=== PATIENT | male | born 1960 | race Caucasian/White ===

== ENCOUNTER 2020-10-26 11:14 | Inpatient (IN) | payer BC ==
[~2020-10-26] VITALS: Ht 185.4 cm; Wt 92.4 kg
[2020-11-19 07:45] LABS: BASO % 0.4 % (0.0-2.0); EOS # 0.1 (0.0-0.7); EOS % 1.5 % (0-4.0); GRAN # 4.4 (1.4-6.5); GRAN % 61.2 % (42.2-75.2); HEMOGLOBIN 15.2 g/dl (13.5-18.0); LYMPH # 2.1 (1.2-3.4); LYMPH % 28.6 % (20.0-51.0); MEAN CELL VOLUME 85 fl (80.0-100.0); MEAN CORPUSCULAR HEMOGLOBIN 27 pg (27.0-31.0); MEAN CORPUSCULAR HGB CONC 32 g/dl (33.0-37.0); MEAN PLATELET VOLUME 8.7 fl (7.4-10.4); MONO # 0.6 (0.1-0.6); PLATELET COUNT 279 K/mm3 (130-400); RED BLOOD COUNT 5.56 M/mm3 (4.20-5.60); REDCELL DISTRIBUTION WIDTH-CV 12.9 % (11.5-14.5)
[2020-11-19 07:54] LABS: ALBUMIN 4.6 gm/dL (3.5-5.0); BILIRUBIN,TOTAL 0.6 mg/dL (0.0-1.0); CALCIUM 9.4 mg/dL (8.4-10.2); POTASSIUM 4.5 mmol/L (3.4-5.0)
[2020-11-20] VITALS (9 sets, daily range): BP systolic 130–151; BP diastolic 56–93; PULSE 78–101; TEMP 97.4–98.2
[2020-11-20] MEDS ORDERED: PRINIVIL10 MG PO (10:47)
[2020-11-20] MEDS ORDERED: LIPITOR 10MG10 MG PO (10:47)
[2020-11-20] MEDS ORDERED: ONE-A-DAY ESSE1 EACH PO (10:47)
--- NOTE | 2020-11-20 14:03 | NUR ---
Patient taken to the OR by SIRISHA Eason. His belongings are taken to the PACU to Brandie Steve RN.
[2020-11-21 00:19] VITALS: BP 128/66; PULSE 109; TEMP 98.2
--- NOTE | 2020-11-21 00:54 | NUR ---
Patient assessed around 1950. Alert and oriented, and able to make needs known. Reported mild pain to abdomen, and given scheduled pain medication. Enocuraged to call if medication was not effective and voiced understanding. Peripheral IV to right hand with fluids running per orders. Denies SOB an dyspnea. On oxygen at 1 L/min via NC. LS CTA in upper lobes, diminished in lower. Respirations even and unlabored. HRR. Capillary refill less than 3 seconds. Non-tenting skin turgor. BS hypoactive x 4. 6 lap sites to abdomen, all without redness, warmth, swelling, and drainage. Denies passing gas. Indwelling tellez catheter patent, and draining bloody urine with small clots present. No edema. Voices no questions, needs, or concerns at this time. Resting in bed with call light within reach.
[2020-11-21 04:12] VITALS: BP 15/71; PULSE 102; TEMP 98.4
--- NOTE | 2020-11-21 06:24 | NUR ---
Patient has received scheduled medications, and has not needed any PRN pain medications this shift. Indwelling tellez catheter had started with mejia red urine with blood clots present. Currently patient's urine is alternativing between tea colored and clear with sediment present. IV fluids continue per orders. Patient has been tolerating fluids well. Voices no questions needs, or concerns at this time. Resting in bed with call light within reach.
[2020-11-21 06:30] LABS: HEMATOCRIT 41.3 % (42.0-52.0); HEMOGLOBIN 13.5 g/dl (13.5-18.0)
[2020-11-21 06:44] LABS: CALCIUM 8.7 mg/dL (8.4-10.2); CREATININE, serum 1.14 (0.66-1.25); POTASSIUM 4.8 mmol/L (3.4-5.0)
[2020-11-21 07:51] VITALS: BP 131/77; PULSE 95; TEMP 97.9
--- NOTE | 2020-11-21 08:00 | NUR ---
Patient resting in bed at this time. Patient is alert and oriented, answers questions appropriatey. IVF per order, urine is clear and yellow small amounts of sediment in the tubing. Patient denies pain. Patient is on 2L O2 via NC with an SpO2 of 98, O2 turned down to 1L. Patient denies needs at this time, call light within reach.
[2020-11-21 11:38] VITALS: BP 123/76; PULSE 93; TEMP 98.4
--- NOTE | 2020-11-21 13:08 | NUR ---
Kem visited with patient. That is all that was needed at this time.
--- NOTE | 2020-11-21 16:00 | NUR ---
Discharge teaching completed. Discussed discharge instructions, appointments, and medication. Teaching given for care of a tellez, leg bag use, and how to change them. INT removed, catheter intact, hemostasis achieved. Patient now on room air at 96% SpO2, encouraged patient to use incentive spirometer at home to continue to improve oxygen saturation. Patient verbalized understanding. Patient confirmed all personal belongings were gathered and was escorted to ED entrance where he entered a private vehicle.
== END 2020-11-21 16:00 | disposition home or self-care (01) | DRG 708 ==
LOC: INPTSU 11-20 10:11 → SURG 11-20 12:30
PROVIDERS: ADMIT Urology
PROC: 07BC4ZZ Excision of Pelvis Lymphatic, Percutaneous Endoscopic Approach (ICD-10-PCS; 2020-11-20)
PROC: 8E0W4CZ Robotic Assisted Procedure of Trunk Region, Percutaneous Endoscopic Approach (ICD-10-PCS; 2020-11-20)
PROC: 0VT04ZZ Resection of Prostate, Percutaneous Endoscopic Approach (ICD-10-PCS; principal; 2020-11-20 13:45)
DX: C61 Malignant neoplasm of prostate (principal)
CPT/HCPCS: A4314; A9284; J0690; J1100; J1885; J2250; J2405; J2704; J7120